=== PATIENT | female | born 2000 | race Caucasian/White ===

== ENCOUNTER 2021-10-08 16:47 | Inpatient (IN) | payer BC ==
[~2021-10-08 16:47] MED LIST: Bupivacaine/Epinephrine 0.25% 30 ML VIAL ONE; ePHEDrine Sulfate 50 MG/10 ML VIAL ONE
[2021-10-08] MEDS ORDERED: Zolpidem Tartrate 5 MG TAB PO PRN (17:14)
[2021-10-08] MEDS ORDERED: hydrALAZINE 20 MG/ML VIAL SLOW IVP PRN (17:14)
[2021-10-08] MEDS ORDERED: Promethazine HCl 25 MG/ML VIAL IM PRN (17:14)
[2021-10-08] MEDS ORDERED: Diphenoxylate HCl/Atropine Tablet PO PRN ×2 (17:14)
[2021-10-08] MEDS ORDERED: Misoprostol 200 MCG TAB PR PRN (17:14)
[2021-10-08] MEDS ORDERED: HYDROcodone/Acetaminophen 5/325 mg Tablet PO PRN ×2 (17:14)
[2021-10-08] MEDS ORDERED: Lidocaine 1% (PF) 30 ML VIAL SC PRN (17:14)
[2021-10-08] MEDS ORDERED: Butorphanol Tartrate 1 MG/ML VIAL SLOW IVP PRN (17:14)
[2021-10-08] MEDS ORDERED: Ibuprofen 800 MG TAB PO PRN (17:14)
[2021-10-08] MEDS ORDERED: NS w/ Oxytocin 30 units 500 ML IV SCH ×2 (17:15)
[2021-10-08 17:56] LABS: Hemoglobin 12.2 g/dL (12.0-15.5); Mean Corpuscular HGB CONC 33.5 g/dL (32.0-36.0); Mean Corpuscular Hemoglobin 30.3 pg (27.0-33.0); Mean Corpuscular Volume 90.3 fl (81.6-98.3); Mean Platelet Volume 11.8 fl (7.4-10.4); Platelet Count 190 10x3/uL (150-450); RBC Distribution Width 13.6 % (11.5-14.5); Red Blood Cell (RBC) Count 4.03 10x6/uL (3.90-5.03); White Blood Cell (WBC) Count 7.6 10x3/uL (3.5-10.5)
[2021-10-08 18:05] VITALS: BMI 29.1
[2021-10-08 18:26] LABS: HIV (1/2) Antibody/Antigen Non-Reactive (NonReactive); HIV 1/2 INDEX 0.09 S/CO (<1.00); Hep B Surf Ag Non-Reactive S/CO (NonReactive)
[2021-10-08 18:27] LABS: HBSAg Index 0.18 S/CO (0-0.99); Syphilis Antibody Nonreactive (Nonreactive); Syphilis Antibody Index 0.01 S/CO (<1.00 Non-Reactive)
[2021-10-08 18:54] LABS: SARS-CoV-2 NAA Rapid Test Not Detected (NotDetected)
[2021-10-08] MEDS: Acetaminophen 500 MG TAB PO PRN (19:51)
[2021-10-08] MEDS: Ondansetron PF 4 MG/2 ML Vial IVP PRN (19:51)
[2021-10-09] MEDS: Lactated Ringer's 1,000 ML IV SCH ×3 (01:27→08:23)
[2021-10-09] MEDS ORDERED: Fentanyl 2 mcg/Bup 0.1% Cadd 100 ML ONE (07:03)
[2021-10-09] MEDS: Acetaminophen 500 MG TAB PO PRN (08:15)
[2021-10-09] MEDS: Ondansetron PF 4 MG/2 ML Vial IVP PRN (08:18)
[2021-10-09] MEDS ORDERED: Promethazine HCl 25 MG/ML VIAL IM PRN (08:50)
[2021-10-09] MEDS ORDERED: ePHEDrine Sulfate 50 MG/10 ML VIAL SLOW IVP PRN (08:50)
[2021-10-09] MEDS ORDERED: diphenhydrAMINE 50 MG/ML VIAL IVP PRN (08:50)
[2021-10-09] MEDS ORDERED: Acetaminophen 325 MG TAB PO PRN (08:50)
[2021-10-09] MEDS ORDERED: Lactated Ringer's 500 ML IV PRN (08:50)
[2021-10-09] MEDS ORDERED: Naloxone HCl 0.4 mg/ml Vial IVP PRN ×2 (08:50)
[2021-10-09] MEDS ORDERED: Ondansetron PF 4 MG/2 ML Vial IVP PRN ×2 (08:50→12:51)
[2021-10-09] MEDS ORDERED: Hydrocerin (Eucerin) Cream 120 gm Jar TOP PRN (08:50)
[2021-10-09] MEDS ORDERED: Fentanyl 2 mcg/Bupivacaine 0.1% Cassette 100 ML EPIDURAL SCH (09:00)
[2021-10-09] MEDS ORDERED: Communication Order-Pharmacy FS SCH (09:00)
[2021-10-09] MEDS ORDERED: Lanolin Ointment 7 GM TUBE TOP PRN (12:51)
[2021-10-09] MEDS ORDERED: Bisacodyl 10 MG SUPP PR PRN (12:51)
[2021-10-09] MEDS ORDERED: Benzocaine-Menthol 82.5 ML CAN TOP PRN (12:51)
[2021-10-09] MEDS ORDERED: Preparation H Ointment 28 GM TUBE PR PRN (12:51)
[2021-10-09] MEDS ORDERED: HYDROcodone/Acetaminophen 5/325 mg Tablet PO PRN ×2 (12:51)
[2021-10-09] MEDS ORDERED: diphenhydrAMINE 25 MG CAP PO PRN (12:51)
[2021-10-09] MEDS ORDERED: Milk Of Magnesia 30 ML UDCUP PO PRN (12:51)
[2021-10-09] MEDS ORDERED: hydrALAZINE 20 MG/ML VIAL SLOW IVP PRN (12:51)
[2021-10-09] MEDS ORDERED: Misoprostol 200 MCG TAB VAG PRN (12:51)
[2021-10-09] MEDS ORDERED: NS w/ Oxytocin 30 units 500 ML IV SCH (13:00)
[2021-10-09] MEDS: Ibuprofen 800 MG TAB PO SCH ×2 (16:11→23:22)
[2021-10-09] MEDS: Ferrous Sulfate 325 MG TAB PO SCH (17:24)
[2021-10-09] MEDS: Docusate 100 MG CAP PO SCH (21:00)
[2021-10-10] MEDS: Ibuprofen 800 MG TAB PO SCH ×2 (06:29→14:10)
[2021-10-10] MEDS ORDERED: Prenatal Vitamin 1 TAB PO SCH (09:00)
[2021-10-10] MEDS: Docusate 100 MG CAP PO SCH (09:50)
[2021-10-10] MEDS: Ferrous Sulfate 325 MG TAB PO SCH ×2 (09:59→12:53)
[2021-10-10] MEDS ORDERED: Boostrix 0.5 ML (Tdap) VIAL IM ONE (12:51)
[2021-10-10 13:47] VITALS: BP 127/80; TEMP 97.5
== END 2021-10-10 15:10 | disposition home or self-care (01) | DRG 806 ==
LOC: CSHLD 16:47 → CSHPP 10-09 15:15
PROVIDERS: ADMIT Obstetrics & Gynecology; ATTEND Obstetrics & Gynecology
PROC: 10E0XZZ Delivery of Products of Conception, External Approach (ICD-10-PCS; principal; 2021-10-09)
PROC: 0KQM0ZZ Repair Perineum Muscle, Open Approach (ICD-10-PCS; 2021-10-09)
PROC: 10907ZC Drainage of Amniotic Fluid, Therapeutic from Products of Conception, Via Natural or Artificial Opening (ICD-10-PCS; 2021-10-09)
PROC: 3E0P7VZ Introduction of Hormone into Female Reproductive, Via Natural or Artificial Opening (ICD-10-PCS; 2021-10-09)
PROC: 0W8NXZZ Division of Female Perineum, External Approach (ICD-10-PCS; 2021-10-09)
PROC: 3E033VJ Introduction of Other Hormone into Peripheral Vein, Percutaneous Approach (ICD-10-PCS; 2021-10-09)
DX: O76 Abnormality in fetal heart rate and rhythm complicating labor and delivery (principal); O99.354 Diseases of the nervous system complicating childbirth; Z37.0 Single live birth; O41.03X0 Oligohydramnios, third trimester, not applicable or unspecified; Z86.16 Personal history of COVID-19; G43.909 Migraine, unspecified, not intractable, without status migrainosus; G40.909 Epilepsy, unspecified, not intractable, without status epilepticus; F90.9 Attention-deficit hyperactivity disorder, unspecified type; F41.9 Anxiety disorder, unspecified; O99.344 Other mental disorders complicating childbirth; Z3A.38 38 weeks gestation of pregnancy; Z14.1 Cystic fibrosis carrier; O43.893 Other placental disorders, third trimester; O70.1 Second degree perineal laceration during delivery
CPT/HCPCS: 51702; 85027; 86780; 86850; 86900; 86901; 87340; 87389; J2405; J2550; J2590; J7120; U0002